=== PATIENT | female | born 1970 | race Caucasian/White ===

== ENCOUNTER → 2017-03-25 | Outpatient (CLI) | payer SELFPAY ==
--- NOTE | 2017-03-25 12:21 | RADIOLOGY REPORT PS360 ---
CHEST - EMPLOYEE CLINICAL INDICATION: POSITIVE TB TEST IN PAST ORDERING PHYSICIAN: REFERRAL PATIENT AGE: 47 years COMPARISON: None FINDINGS: Unremarkable cardiovascular structures. Lungs are clear bilaterally. No evidence of active granulomatous process. No acute bony anomalies. IMPRESSION: Negative chest, no acute finding
== END ==
LOC: RAD 11:55
DX: R76.11 Nonspecific reaction to tuberculin skin test without active tuberculosis (principal)